=== PATIENT | female | born 1945 | race Caucasian/White ===

== ENCOUNTER 2022-02-21 07:20 | Outpatient (CLI) | payer MEDICARE, OTHER | END 2022-02-21 23:59 | disposition home or self-care (01) | LOC: LAB 07:20 | PROVIDERS: ATTEND Surgery | DX: Z01.812 Encounter for preprocedural laboratory examination (principal); Z20.822 Contact with and (suspected) exposure to COVID-19; R13.10 Dysphagia, unspecified ==

== ENCOUNTER 2022-02-23 07:37 | Day surgery (SDC) | payer MEDICARE, OTHER ==
[2022-02-23] MEDS ORDERED: PROPOFOL 200 MG/20 ML BOTTLE IV ONE (07:38)
[2022-02-23] MEDS ORDERED: LIDOCAINE-MPF 2% 5 ML VIAL IJ ONE (07:38)
[2022-02-23] MEDS ORDERED: FENTANYL CITRATE 100 MCG/2 ML AMPUL ONE (08:09)
[2022-02-23 08:20] LABS: *BILIRUBIN,URIN NEGATIVE (NEGATIVE); *CLARITY,URINE CLEAR (CLEAR); *COLOR,URINE YELLOW (YELLOW); *KETONES,URINE NEGATIVE (NEGATIVE); *UROBILINOGEN,URINE 0.2 E.U./dl (NORMAL); LEUKOCYTE ESTERASE ,URINE NEGATIVE (NEGATIVE); NITRITE, URINE NEGATIVE (NEGATIVE); PH,URINE 5.5 (5.0-8.0); UGLUCOSE NEGATIVE (NEGATIVE)
[2022-02-23 08:24] LABS: HEMATOCRIT 37.6 % (31.2-41.9); MEAN CORPUSCULAR HEMOGLOBIN 29.4 uug (24.7-32.8); MEAN CORPUSCULAR VOLUME 83.9 fL (75.5-95.3); PLATELET COUNT (AUTO) 205 K/uL (179-408)
[2022-02-23 08:39] LABS: CREATININE 0.9 mg/dL (0.6-1.3); POTASSIUM 3.7 mmol/L (3.5-5.1)
[2022-02-23 08:49] LABS: *BLOOD, URINE TRACE (NEGATIVE)
[2022-02-23 09:07] LABS: BACTERIA,URINE NONE SEEN /HPF (NONE SEEN); RBC,URINE 0-3 /HPF (0-3); WBC,URINE NONE SEEN /HPF (0-3)
[2022-02-23 09:08] LABS: SQUAMOUS EPITHELIAL CELL,UR FEW /HPF (NONE SEEN)
== END 2022-02-23 11:43 | disposition home or self-care (01) ==
LOC: DS 07:37
PROVIDERS: ATTEND Surgery
DX: R19.4 Change in bowel habit (principal); R10.13 Epigastric pain; D64.9 Anemia, unspecified; R63.4 Abnormal weight loss; K21.9 Gastro-esophageal reflux disease without esophagitis; K29.50 Unspecified chronic gastritis without bleeding; K57.30 Diverticulosis of large intestine without perforation or abscess without bleeding; K44.9 Diaphragmatic hernia without obstruction or gangrene; K63.89 Other specified diseases of intestine; K31.89 Other diseases of stomach and duodenum; K64.8 Other hemorrhoids; D12.3 Benign neoplasm of transverse colon; D12.2 Benign neoplasm of ascending colon; I10 Essential (primary) hypertension; E03.9 Hypothyroidism, unspecified; F41.9 Anxiety disorder, unspecified; Z79.899 Other long term (current) drug therapy; Z98.890 Other specified postprocedural states
CPT/HCPCS: 45380; 43239; 71045; 80048; 81001; 85025; 85730; 36415; J3490; J3010; J7120; 88313-TC; 88342; A4663